=== PATIENT | male | born 1965 | race Caucasian/White ===

== ENCOUNTER 2021-09-10 09:20 | Emergency (ER) | payer BC, SELFPAY ==
[2021-09-10 09:29] VITALS: BP 132/67; PULSE 81; RESP 16; TEMP 36.1; O2SAT 98
--- NOTE | 2021-09-10 09:29 | ED.BACK ---
HPI - Back Pain/Injury General Chief Complaint: Back Pain/Injury Stated Complaint: Bsck Pain Time Seen by Provider: 09/10/21 09:29 Source: patient, family, RN notes reviewed and old records reviewed Mode of arrival: ambulatory Limitations: no limitations History of Present Illness HPI Narrative: 56-year-old male presents to the [facility] with complaints of right lower back pain since waking up this morning. No loss or retention of bowel or bladder. No abdominal pain, chest pain. No numbness or tingling in extremities no treatment prior to arrival MD elicited complaint: back pain Related Data Home Medications Medication Instructions Recorded Confirmed dapagliflozin [Farxiga] 10 mg PO DAILY 08/08/19 09/10/21 fenofibrate micronized 130 mg PO DAILY 08/08/19 09/10/21 furosemide 20 mg PO DAILY 08/08/19 09/10/21 insulin aspart U-100 [Novolog 1 unit SUBCUT DIRECTED 08/08/19 09/10/21 U-100 Insulin aspart] insulin glargine [Lantus U-100 1 unit SUBCUT DAILY 08/08/19 09/10/21 Insulin] losartan 100 mg PO DAILY 08/08/19 09/10/21 metformin 850 mg PO DAILY 08/08/19 09/10/21 omeprazole 40 mg PO DAILY 08/08/19 09/10/21 rosuvastatin 20 mg PO DAILY 08/08/19 09/10/21 trazodone 50 mg PO DAILY 09/10/21 09/10/21 Allergies Allergy/AdvReac Type Severity Reaction Status Date / Time No Known Allergies Allergy Verified 09/10/21 09:27 Review of Systems Review of Systems: All systems reviewed & are unremarkable except as noted in HPI and below Constitutional: Constitutional: Reports no additional constitutional complaints and Denies weakness Eyes: Eyes: Reports no additional eye complaints ENT: Reports system reviewed and no additional complaints, except as documented Cardiovascular: Cardiovascular: Reports no additional cardiovascular complaints and Denies chest pain Respiratory: Respiratory: Reports no additional respiratory complaints, Denies cough and Denies dyspnea Gastrointestinal: Gastrointestinal: Reports no additional gastrointestinal complaints, Denies abdominal pain, Denies constipation, Denies diarrhea, Denies nausea and Denies vomiting Genitourinary: Genitourinary: Denies urinary incontinence Musculoskeletal: Musculoskeletal: Reports as per HPI, Reports back pain (right lower) and Denies numbness Integumentary/Breasts: Skin/Breast: Reports system reviewed and no additional complaints, except as docu Neurologic: Reports system reviewed and no additional complaints, except as documented, Denies focal weakness, Denies numbness and Denies weakness Psychiatric: Psychiatric: Reports no additional psychiatric complaints Allergic/Immunologic: Allergic/Immunologic: Reports no additional allergic/immunologic complaints PMFSH Past Medical History Medical History Cellulitis Diabetes GERD (gastroesophageal reflux disease) Hypercholesterolemia Hypertension MRSA (methicillin resistant Staphylococcus aureus) Family History Family History Mother Hypertension Family history of elevated blood lipids Family history of diabetes mellitus in first degree relative Other Cerebrovascular accident Diabetes mellitus Family history of arthritis Social History Social History Smoking status: Never smoker Alcohol intake: never Comments At the time of my signature, I reviewed and agree with the nursing past medical, surgical, social, and family history. There is no relevant family history pertinent to the patient complaint. Exam Const: General: healthy appearing, no acute distress and alert Nutritional Appearance: well nourished and obese morbidly obese Orientation/consciousness: patient oriented x3 Limitations: no limitations HENMT: Head: normal to inspection Eyes: Pupils: Equal, round and reactive pupils present Neck: Neck: normal visual inspection, no lymphadenopa
[2021-09-10 09:34] VITALS: BP 132/67; PULSE 81; RESP 16; TEMP 36.1; O2SAT 98
== END 2021-09-10 09:40 | disposition home or self-care (01) ==
PROVIDERS: Emergency Provider Nurse Practitioner; PCP Registered Nurse
DX: S39.012A Strain of muscle, fascia and tendon of lower back, initial encounter (principal); X58.XXXA Exposure to other specified factors, initial encounter; E11.9 Type 2 diabetes mellitus without complications; K21.9 Gastro-esophageal reflux disease without esophagitis; E78.00 Pure hypercholesterolemia, unspecified; I10 Essential (primary) hypertension; Z86.14 Personal history of Methicillin resistant Staphylococcus aureus infection
CPT/HCPCS: 99213; G0463

== ENCOUNTER 2021-09-15 10:22 | Emergency (ER) | payer BC, SELFPAY ==
[2021-09-15 10:37] VITALS: BP 132/65; PULSE 92; RESP 22; TEMP 37.2; O2SAT 98
--- NOTE | 2021-09-15 10:46 | ED.WOUNDLAC ---
HPI - Wound/Laceration General Chief Complaint: Wound/Laceration Stated Complaint: Laceration on finger Time Seen by Provider: 09/15/21 10:47 Source: patient, RN notes reviewed and old records reviewed Mode of arrival: ambulatory Limitations: no limitations History of Present Illness HPI narrative: 56-year-old male presents to the the medical center with a small laceration to the left second fingertip. Patient reports that he was trying to grab something out of his shower bag when his finger was cut by a razor. Bleeding is well controlled. Last Tdap 04/24/2017 Per [facility] website Related Data Home Medications Medication Instructions Recorded Confirmed dapagliflozin [Farxiga] 10 mg PO DAILY 08/08/19 09/15/21 fenofibrate micronized 130 mg PO DAILY 08/08/19 09/15/21 furosemide 20 mg PO DAILY 08/08/19 09/15/21 insulin aspart U-100 [Novolog 1 unit SUBCUT DIRECTED 08/08/19 09/15/21 U-100 Insulin aspart] insulin glargine [Lantus U-100 1 unit SUBCUT DAILY 08/08/19 09/15/21 Insulin] losartan 100 mg PO DAILY 08/08/19 09/15/21 metformin 850 mg PO DAILY 08/08/19 09/15/21 omeprazole 40 mg PO DAILY 08/08/19 09/15/21 rosuvastatin 20 mg PO DAILY 08/08/19 09/15/21 trazodone 50 mg PO DAILY 09/10/21 09/15/21 Allergies Allergy/AdvReac Type Severity Reaction Status Date / Time No Known Allergies Allergy Verified 09/15/21 10:32 Review of Systems Review of Systems: All systems reviewed & are unremarkable except as noted in HPI and below Constitutional: Constitutional: Reports no additional constitutional complaints Eyes: Eyes: Reports no additional eye complaints ENT: Reports system reviewed and no additional complaints, except as documented Cardiovascular: Cardiovascular: Reports no additional cardiovascular complaints Respiratory: Respiratory: Reports no additional respiratory complaints Musculoskeletal: Musculoskeletal: Reports no additional musculoskeletal complaints Integumentary/Breasts: Skin/Breast: Reports as per HPI Comments: Left second fingertip avulsion, bleeding controlled Psychiatric: Psychiatric: Reports no additional psychiatric complaints Allergic/Immunologic: Allergic/Immunologic: Reports no additional allergic/immunologic complaints PMFSH Past Medical History Medical History Cellulitis Diabetes GERD (gastroesophageal reflux disease) Hypercholesterolemia Hypertension MRSA (methicillin resistant Staphylococcus aureus) Family History Family History Mother Hypertension Family history of elevated blood lipids Family history of diabetes mellitus in first degree relative Other Cerebrovascular accident Diabetes mellitus Family history of arthritis Social History Social History Smoking status: Never smoker Alcohol intake: never Comments At the time of my signature, I reviewed and agree with the nursing past medical, surgical, social, and family history. There is no relevant family history pertinent to the patient complaint. Exam Const: General: healthy appearing, no acute distress and alert Nutritional Appearance: well nourished and obese Orientation/consciousness: patient oriented x3 Limitations: no limitations HENMT: Head: normal to inspection Eyes: Pupils: Equal, round and reactive pupils present Neck: Neck: normal visual inspection, no lymphadenopathy and no meningeal signs Chest: Chest palpation & inspection: normal inspection of the chest Resp: Effort & Inspection: normal respiratory effort Cardio: Rate: regular rate Back/Spine/Pelvis: Back: no CVA tenderness Skin: Wounds: wounds noted avulsion left distal 2nd finger size (0.5x 0.5 cm) and without odor; no drainage, not malodorous and without any surrounding erythema Neuro: General: patient oriented x3, moves all extremities, no meningeal signs and no focal motor deficits S
== END 2021-09-15 11:30 | disposition home or self-care (01) ==
PROVIDERS: Emergency Provider Nurse Practitioner; PCP Registered Nurse
DX: S61.211A Laceration without foreign body of left index finger without damage to nail, initial encounter (principal); W45.8XXA Other foreign body or object entering through skin, initial encounter; E11.9 Type 2 diabetes mellitus without complications; K21.9 Gastro-esophageal reflux disease without esophagitis; E78.00 Pure hypercholesterolemia, unspecified; I10 Essential (primary) hypertension; Z86.14 Personal history of Methicillin resistant Staphylococcus aureus infection; Z79.4 Long term (current) use of insulin; Z79.84 Long term (current) use of oral hypoglycemic drugs
CPT/HCPCS: 12001; 99212; G0463

== ENCOUNTER 2022-06-08 10:00 | Emergency (ER) | payer BC, SELFPAY ==
[2022-06-08 10:10] VITALS: BP 146/76; PULSE 82; RESP 16; TEMP 36.5; O2SAT 98
--- NOTE | 2022-06-08 10:32 | ED.URI ---
HPI - URI/Sore Throat General Chief Complaint: Upper Respiratory Infection Stated Complaint: Cough,Headache Time Seen by Provider: 06/08/22 10:34 Source: patient and RN notes reviewed Mode of arrival: ambulatory Limitations: no limitations History of Present Illness HPI Narrative: 57-year-old male with history of diabetes presents concern for 1 week history of cough, chest congestion, sinus pressure and headache. He reports he has been taking an [id number] multisymptom cold medicine with some occasional relief. He reports feeling of shortness of breath occasionally after coughing fit. He denies known sick contacts. He denies fever, bodies, chills, sweats. MD elicited complaint: cough and nasal congestion Related Data Home Medications Medication Instructions Recorded Confirmed fenofibrate micronized 130 mg 130 mg PO DAILY 08/08/19 06/08/22 capsule furosemide 20 mg tablet 20 mg PO DAILY 08/08/19 06/08/22 insulin aspart U-100 100 unit/mL 1 unit subcut DIRECTED 08/08/19 06/08/22 subcutaneous solution (Novolog U-100 Insulin aspart) insulin glargine 100 unit/mL 1 unit subcut DAILY 08/08/19 06/08/22 subcutaneous solution (Lantus U-100 Insulin) losartan 100 mg tablet 100 mg PO DAILY 08/08/19 06/08/22 metformin 850 mg tablet 850 mg PO DAILY 08/08/19 06/08/22 omeprazole 40 mg capsule,delayed 40 mg PO DAILY 08/08/19 06/08/22 release rosuvastatin 20 mg tablet 20 mg PO DAILY 08/08/19 06/08/22 trazodone 50 mg tablet 50 mg PO DAILY 09/10/21 06/08/22 semaglutide 0.25 mg or 0.5 mg (2 0.5 mg subcut WEEKLY 06/08/22 06/08/22 mg/1.5 mL) subcutaneous pen injector (Lonely Sock) testosterone cypionate 200 mg/mL 200 mg IM DIRECTED 06/08/22 06/08/22 intramuscular oil Allergies Allergy/AdvReac Type Severity Reaction Status Date / Time No Known Allergies Allergy Verified 06/08/22 10:23 Review of Systems Review of Systems: CONSTITUTIONAL: Denies malaise, chills, sweats, or fever. EYES: Denies visual changes, redness, or discharge. ENT: Reports rhinorrhea, congestion, sinus pain. Denies otalgia and sore throat. CARDIOVASCULAR: Denies chest pain, palpitations, or edema. RESPIRATORY: Reports cough, episodic dyspnea. GASTROINTESTINAL: Denies abdominal pain, nausea, vomiting, diarrhea SKIN: Denies rash or itching. MUSCULOSKELETAL: Denies myalgia. NEUROLOGIC: Reports headache. All systems reviewed & are unremarkable except as noted in HPI and below PMFSH Past Medical History Medical History Cellulitis Diabetes GERD (gastroesophageal reflux disease) Hypercholesterolemia Hypertension MRSA (methicillin resistant Staphylococcus aureus) Family History Family History Mother Hypertension Family history of elevated blood lipids Family history of diabetes mellitus in first degree relative Other Cerebrovascular accident Diabetes mellitus Family history of arthritis Social History Social History Smoking status: Never smoker Alcohol intake: never Comments At time of signature, agree with nursing past medical, surgical, social and family history. There is no relevant family history pertinent to the presenting complaint Exam Narrative: GENERAL: Well-appearing, well-nourished, and in no acute distress. HEAD: Normocephalic EYES: PERRLA, conjunctivae clear ENT: Nares clear, turbinates edematous and erythematous, clear discharge. Mucous membranes moist. TM pearly haque with dull light reflex bilaterally; no tragal tenderness. Oropharynx not erythematous without lesions. Tonsils not enlarged and without exudate, no drooling, no hoarseness, no trismus, uvula midline. NECK: Supple. No lymphadenopathy CHEST: Clear to auscultation, breath sounds equal. No wheezing, rhonchi, rales, or stridor. No respiratory distress, speaks in full sentences. HEART: Regular rate a
== END 2022-06-08 10:44 | disposition home or self-care (01) ==
PROVIDERS: Emergency Provider Nurse Practitioner; PCP Registered Nurse
DX: J32.9 Chronic sinusitis, unspecified (principal); J40 Bronchitis, not specified as acute or chronic; E11.9 Type 2 diabetes mellitus without complications; K21.9 Gastro-esophageal reflux disease without esophagitis; E78.00 Pure hypercholesterolemia, unspecified; I10 Essential (primary) hypertension; Z86.14 Personal history of Methicillin resistant Staphylococcus aureus infection
CPT/HCPCS: 99213; G0463